=== PATIENT | male | born 2000 | race Caucasian/White ===

== ENCOUNTER 2018-11-26 14:12 | Emergency (ER) | payer OTHER ==
[2018-11-26 14:24] VITALS: TEMP 97.8
--- NOTE | 2018-11-26 15:05 | ED ---
General Adult HPI - General Chief complaint: Psychiatric Symptoms Stated complaint: mental health Time Seen by Provider: 11/26/18 14:29 Source: patient, RN notes reviewed, old records reviewed Mode of arrival: ambulatory Limitations: no limitations - History of Present Illness Initial comments: 18-year-old male presents for psychiatric evaluation. Patient has had suicidal ideation and has been cutting his left upper extremity. He has had some issues with his current relationship. He has previous psychiatric history including depression and self-harm in the past. He denies any physical complaints at the time my evaluation. He states he was urged to present to the emergency department by a friend was concerned. - Related Data Home Medications Medication Instructions Recorded Confirmed Albuterol Sulfate [Proair Hfa] 2 puff INHALATION RT-Q6H PRN 11/26/18 11/26/18 Doxycycline Monohydrate [Monodox] 100 mg PO Q12HR 11/26/18 11/26/18 Allergies Allergy/AdvReac Type Severity Reaction Status Date / Time No Known Allergies Allergy Verified 11/26/18 14:51 Review of Systems ROS Statement: Those systems with pertinent positive or pertinent negative responses have been documented in the HPI. ROS Other: All systems not noted in ROS Statement are negative. Past Medical History Past Medical History: Asthma History of Any Multi-Drug Resistant Organisms: None Reported Past Surgical History: No Surgical Hx Reported Past Psychological History: No Psychological Hx Reported Smoking Status: Never smoker Past Alcohol Use History: None Reported Past Drug Use History: None Reported General Exam Limitations: no limitations General appearance: alert, in no apparent distress Head exam: Present: atraumatic, normocephalic Eye exam: Present: normal appearance, PERRL ENT exam: Present: normal exam Neck exam: Present: normal inspection. Absent: tenderness, meningismus Respiratory exam: Present: normal lung sounds bilaterally. Absent: respiratory distress, wheezes Cardiovascular Exam: Present: regular rate, normal rhythm GI/Abdominal exam: Present: soft. Absent: distended, tenderness, guarding Extremities exam: Present: other (Superficial abrasion left forearm) Neurological exam: Present: alert, oriented X3 Psychiatric exam: Present: depressed, flat affect Skin exam: Present: warm, dry, intact, abrasion. Absent: cyanosis, diaphoretic Course Vital Signs 11/26/18 14:19 Temperature 97.8 F Pulse Rate 65 Respiratory 18 Rate Blood Pressure 118/62 O2 Sat by Pulse 99 Oximetry Medical Decision Making - Medical Decision Making 18 -year-old male presenting for psychiatric evaluation with suicidal ideation. Patient medically cleared in the emergency department, evaluated by EPS. Patient denies any suicidal plan. He is no longer suicidal, he does contract to safety. He is given outpatient referrals. He will return with worsening or changing symptoms. Disposition Clinical Impression: Depression Disposition: HOME SELF-CARE Condition: Good Instructions (If sedation given, give patient instructions): Depression (ED) Is patient prescribed a controlled substance at d/c from ED?: No Referrals: Lolita Bobby MD [Primary Care Provider] - 1-2 days Time of Disposition: 15:55
[2018-11-26 16:06] VITALS: BP 122/68; PULSE 61; RESP 16
== END 2018-11-26 16:05 | disposition home or self-care (01) ==
LOC: EC 14:12
DX: F32.9 Major depressive disorder, single episode, unspecified (principal); S50.812A Abrasion of left forearm, initial encounter; R45.851 Suicidal ideations; J45.909 Unspecified asthma, uncomplicated; Z91.5 Personal history of self-harm; X78.8XXA Intentional self-harm by other sharp object, initial encounter
CPT/HCPCS: 99285

== ENCOUNTER 2019-07-27 22:53 | Inpatient (IN) | payer OTHER ==
[2019-07-27 23:54] LABS: Basophils % (A) 1 %; Eosinophils # (A) 0.6 k/uL (0-0.7); Eosinophils % (A) 7 %; HCT 44.6 % (39.0-53.0); HGB 15.5 gm/dL (13.0-17.5); Lymphocytes # (A) 1.7 k/uL (1.0-4.8); Lymphocytes % (A) 20 %; MCH 29.2 pg (25.0-35.0); MCHC 34.7 g/dL (31.0-37.0); MCV 84.2 fL (80.0-100.0); Mean Platelet Volume 7.2; Monocytes # (A) 0.5 k/uL (0-1.0); Monocytes % (A) 6 %; Neutrophils # (A) 5.6 k/uL (1.3-7.7); Neutrophils % (A) 66 %; Platelet Count 261 k/uL (150-450); RBC 5.31 m/uL (4.30-5.90); RDW 13.1 % (11.5-15.5); WBC 8.5 k/uL (4.0-11.0)
[2019-07-28 00:02] LABS: ALT 18 U/L (4-49); AST 29 U/L (17-59); Acetaminophen <10.0 ug/mL; African American GFR (CKD) >90 (>60 ml/min/1.73 sqM); Albumin 5.4 g/dL (3.5-5.0); Alcohol <10 mg/dL; Alkaline Phosphatase 65 U/L (38-126); Anion Gap 12 mmol/L; Blood Urea Nitrogen 11 mg/dL (9-20); Calcium 10.5 mg/dL (8.4-10.2); Carbon Dioxide 25 mmol/L (22-30); Chloride 105 mmol/L (98-107); Glucose 93 mg/dL (74-99); Non-African American GFR(CKD) >90 (>60 ml/min/1.73 sqM); Potassium 4.3 mmol/L (3.5-5.1); Salicylate <1.0 mg/dL; Sodium 142 mmol/L (137-145); Total Bilirubin 1.2 mg/dL (0.2-1.3)
[2019-07-28 00:50] LABS: Amphetamine Screen,Urine Not Detected (NotDetected); Benzodiazepines Screen,Urine Not Detected (NotDetected); Cocaine Screen,Urine Not Detected (NotDetected); Opiate Screen,Urine Not Detected (NotDetected); Phencyclidine Screen,Urine Not Detected (NotDetected); Tricyclic Antidepressant,Urine Not Detected (NotDetected); Urn Cannabinoid Scrn Not Detected (NotDetected)
[2019-07-28 00:51] LABS: Barbiturate Screen,Urine Not Detected (NotDetected); Methadone Screen, Urine Not Detected (NotDetected); Oxycodone Screen, Urine Not Detected (NotDetected)
--- NOTE | 2019-07-28 01:05 | ED ---
General Adult HPI - General Chief complaint: Psychiatric Symptoms Stated complaint: Mental Health Time Seen by Provider: 07/27/19 23:10 Source: patient, police, RN notes reviewed Mode of arrival: ambulatory Limitations: no limitations - History of Present Illness Initial comments: 18-year-old male with a past medical history of major depressive disorder and generalized anxiety disorder presents to the emergency department for a chief complaint of drug overdose and attempted suicide. Patient states that 3 hours prior to arrival he started to take sleeping pills in an attempt to commit suicide. Patient states he took about 12 [employer] sleep aid pills. He is unsure what the active ingredients or dosing is. Patient states he did this because his girlfriend and him broken up and he was very upset. He does not feel suicidal at this time. He denies taking any other medications. Patient has no other complaints at this time including shortness of breath, chest pain, abdominal pain, nausea or vomiting, headache, or visual changes. - Related Data Home Medications Medication Instructions Recorded Confirmed Albuterol Sulfate [Proair Hfa] 2 puff INHALATION RT-Q6H PRN 11/26/18 11/26/18 Doxycycline Monohydrate [Monodox] 100 mg PO Q12HR 11/26/18 11/26/18 Allergies Allergy/AdvReac Type Severity Reaction Status Date / Time No Known Allergies Allergy Verified 07/27/19 22:58 Review of Systems ROS Statement: Those systems with pertinent positive or pertinent negative responses have been documented in the HPI. ROS Other: All systems not noted in ROS Statement are negative. Past Medical History Past Medical History: Asthma History of Any Multi-Drug Resistant Organisms: None Reported Past Surgical History: No Surgical Hx Reported Past Psychological History: No Psychological Hx Reported Smoking Status: Never smoker Past Alcohol Use History: None Reported Past Drug Use History: None Reported General Exam Limitations: no limitations General appearance: alert, in no apparent distress Head exam: Present: atraumatic, normocephalic, normal inspection Eye exam: Present: normal appearance, PERRL, EOMI. Absent: scleral icterus, conjunctival injection, periorbital swelling ENT exam: Present: normal exam, normal oropharynx, mucous membranes moist, normal external ear exam Neck exam: Present: normal inspection, full ROM. Absent: tenderness, menin gismus, lymphadenopathy Respiratory exam: Present: normal lung sounds bilaterally. Absent: respiratory distress, wheezes, rales, rhonchi, stridor Cardiovascular Exam: Present: regular rate, normal rhythm, normal heart sounds. Absent: systolic murmur, diastolic murmur, rubs, gallop, clicks GI/Abdominal exam: Present: soft, normal bowel sounds. Absent: distended, tenderness, guarding, rebound, rigid Neurological exam: Present: alert, oriented X3, CN II-XII intact Psychiatric exam: Absent: homicidal ideation, suicidal ideation Course Vital Signs 07/27/19 07/28/19 22:58 00:19 Temperature 98 F Pulse Rate 82 77 Respiratory 16 18 Rate Blood Pressure 134/81 126/58 O2 Sat by Pulse 94 L 96 Oximetry - Reevaluation(s) Reevaluation #1: 07/28/19 1227 patient was medically cleared and EPS was consulted Reevaluation #2: 07/28/19 02:44 patient reevaluated, resting comfortably. I did call EPS nurse again and she is working on an authorization for another patient, unable to give estimate of time patient can be evaluated but she is hoping soon EKG Findings - EKG Comments: EKG Findings:: normal sinus rhythm, ventricular rate 79, MS interval 160, QTC 428 Medical Decision Making - Medical Decision Making Patient took 12 sleeping pills. Patient states these were sleeping pills OTC from [employer]. This is likely Benadryl. No anticholinergic symptoms. Heart rate is stable. CBC and CMP are unremarkable. Salicylates and acetaminophen are negative. Urine drug scan otherwise negative. EKG was obtained which showed a normal sinus rhythm. Poison control was contacted, did not recommend any further workup. Patient has been stable throughout his stay. He is alert and well-appearing, nontoxic. Patient was medically cleared for EPS evaluation given that he did have an attempted suicide. However at this time he is denying any suicidal thoughts. Patient was evaluated by EPS, recommending inpatient treatment. Patient signing in. - Lab Data Result diagrams: 07/27/19 23:25 07/27/19 23:25 Lab Results 07/27/19 07/27/19 07/28/19 Range/Units 23:25 23:25 00:26 WBC 8.5 (4.0-11.0) k/uL RBC 5.31 (4.30-5.90) m/uL Hgb 15.5 (13.0-17.5) gm/dL Hct 44.6 (39.0-53.0) % MCV 84.2 (80.0-100.0) fL MCH 29.2 (25.0-35.0) pg MCHC 34.7 (31.0-37.0) g/dL RDW 13.1 (11.5-15.5) % Plt Count 261 (150-450) k/uL Neutrophils % 66 % Lymphocytes % 20 % Monocytes % 6 % Eosinophils % 7 % Basophils % 1 % Neutrophils # 5.6 (1.3-7.7) k/uL Lymphocytes # 1.7 (1.0-4.8) k/uL Monocytes # 0.5 (0-1.0) k/uL Eosinophils # 0.6 (0-0.7) k/uL Basophils # 0.0 (0-0.2) k/uL Sodium 142 (137-145) mmol/L Potassium 4.3 (3.5-5.1) mmol/L Chloride 105 (98-107) mmol/L Carbon Dioxide 25 (22-30) mmol/L Anion Gap 12 mmol/L BUN 11 (9-20) mg/dL Creatinine 1.11 (0.66-1.25) mg/dL Est GFR (CKD-EPI)AfAm >90 (>60 ml/min/1.73 sqM) Est GFR (CKD-EPI)NonAf >90 (>60 ml/min/1.73 sqM) Glucose 93 (74-99) mg/dL Calcium 10.5 H (8.4-10.2) mg/dL Total Bilirubin 1.2 (0.2-1.3) mg/dL AST 29 (17-59) U/L ALT 18 (4-49) U/L Alkaline Phosphatase 65 (38-126) U/L Total Protein 9.0 H (6.3-8.2) g/dL Albumin 5.4 H (3.5-5.0) g/dL Salicylates <1.0 mg/dL Urine Opiates Screen Not Detected (NotDetected) Ur Oxycodone Screen Not Detected (NotDetected) Urine Methadone Screen Not Detected (NotDetected) Ur Propoxyphene Screen Not Detected (NotDetected) Acetaminophen <10.0 ug/mL Ur Barbiturates Screen Not Detected (NotDetected) U Tricyclic Antidepress Not Detected (NotDetected) Ur Phencyclidine Scrn Not Detected (NotDetected) Ur Amphetamines Screen Not Detected (NotDetected) U Methamphetamines Scrn Not Detected (NotDetected) U Benzodiazepines Scrn Not Detected (NotDetected) Urine Cocaine Screen Not Detected (NotDetected) U Marijuana (THC) Screen Not Detected (NotDetected) Serum Alcohol <10 mg/dL Disposition Clinical Impression: Drug overdose, intentional, Suicide attempt Disposition: TRANSFER TO PSYCH HOSP/UNIT Condition: Fair Is patient prescribed a controlled substance at d/c from ED?: No Referrals: Lolita Bobby MD [Primary Care Provider] - 1-2 days Time of Disposition: 04:03
[2019-07-28] MEDS ORDERED: ZIPRASIDONE 20 MG VIAL IM PRN (05:27)
[2019-07-28] MEDS ORDERED: MAG HYDROX/AL HYDROX/SIMETH 30 ML CUP PO PRN (05:27)
[2019-07-28] MEDS ORDERED: LORazepam 1 MG TAB PO PRN (05:27)
[2019-07-28] MEDS ORDERED: ACETAMINOPHEN TAB 325 MG TAB PO PRN (05:27)
[2019-07-28] MEDS ORDERED: MAGNESIUM HYDROXIDE 2,400 MG/10 ML CUP PO PRN (05:27)
[2019-07-28] MEDS ORDERED: ALBUTEROL INHALER 60 PUFF/8 GM INHALER INHALATION PRN (06:02)
[2019-07-28] MEDS ORDERED: SERTRALINE 100 MG TAB PO SCH (09:00)
[2019-07-28] MEDS ORDERED: buPROPion 75 MG TAB PO SCH (09:00)
[2019-07-28] MEDS ORDERED: NICOTINE 14MG/24HR PATCH TRANSDERM SCH (09:00)
[2019-07-28] MEDS: SERTRALINE 50 MG TAB PO SCH (09:40)
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
--- NOTE | 2019-07-28 17:12 | P.MDCNMH ---
History of Present Illness H&P Date: 07/28/19 Chief Complaint: depression patient is a 18-year-old male with a known history of asthma and depressive disorder and generalized anxiety presents to ER with complaints of drug overdose and attempted suicide.Patient states that 3 hours prior to arrival he started to take sleeping pills in an attempt to commit suicide. Patient states he took about 12 [employer] sleep aid pills. He is unsure what the active ingredients or dosing is. Patient states he did this because his girlfriend and broke up with him and he was very upset. He does not feel suicidal at this time. He denies taking any other medications. Patient has no other complaints at this time including shortness of breath, chest pain, abdominal pain, nausea or vomiting, headache, or visual changes. UDS negative Calcium 10.5 Review of Systems Constitutional: Patient denies any fever or chills . No generalized weakness or weight loss. Abdomen: Patient denied nausea vomiting and diarrhea and abdominal pain. Cardiovascular: Patient denies any chest pain or short of breath no palpitations. Respiratory: patient denied any cough is from production. No shortness of breath Neurologic: Patient denied any numbness or tingling headache. Musculoskeletal: Patient denies any complaints of joint swelling or deformity. Skin: Negative Psychiatric: depression Endocrine: No heat or cold intolerance. No recent weight gain. Genitourinary: No dysuria or hematuria. All other 14 point ROS negative except the above Past Medical History Past Medical History: Asthma History of Any Multi-Drug Resistant Organisms: None Reported Past Surgical History: No Surgical Hx Reported Smoking Status: Never smoker Medications and Allergies Home Medications Medication Instructions Recorded Confirmed Type Albuterol Sulfate [Proair Hfa] 2 puff INHALATION RT-Q6H PRN 11/26/18 11/26/18 History Doxycycline Monohydrate [Monodox] 100 mg PO Q12HR 11/26/18 11/26/18 History Allergies Allergy/AdvReac Type Severity Reaction Status Date / Time No Known Allergies Allergy Verified 07/27/19 22:58 Physical Exam Vitals: Vital Signs Temp Pulse Pulse Resp BP BP Pulse Ox 07/28/19 06:05 96.8 F L 60 14 90/49 98 07/28/19 00:19 77 18 126/58 96 07/27/19 22:58 98 F 82 16 134/81 94 L Intake and Output 07/28/19 07/28/19 07/28/19 06:59 14:59 22:59 Other: Weight 101.378 kg PHYSICAL EXAMINATION: Patient is lying in the bed comfortably, no acute distress, awake alert and oriented.. HEENT: Normocephalic. Neck is supple. Pupils reactive. Nostrils clear. Oral cavity is moist. Ears reveal no drainage. Neck reveals no JVD, carotid bruits, or thyromegaly. CHEST EXAMINATION: Trachea is central. Symmetrical expansion. Lung nieves clear to auscultation and percussion. CARDIAC: Normal S1, S2 with no gallops. No murmurs ABDOMEN: Soft. Bowel sounds normal. No organomegaly. No abdominal bruits. Extremities: reveal no edema. No clubbing or cyanosis Neurologically awake, alert, oriented x3 with well-coordinated movements. No focal deficits noted Skin: No rash or skin lesions. Psychiatric: Coperative. Nonsuicidal Musculoskeletal: No joint swelling or deformity. Normal range of motion. Cranial Nerve Examination - Cranial Nerves Cranial Nerve I- Olfactory: Intact Cranial Nerve II- Optic: Intact Cranial Nerve III- Oculomotor: Intact Cranial Nerve IV- Trochlear: Intact Cranial Nerve V- Trigeminal: Intact Cranial Nerve - Abducens: Intact Cranial Nerve VII- Facial: Intact Cranial Nerve VIII- Auditory: Intact Cranial Nerve IX- Glossopharyngeal: Intact Cranial Nerve X- Vagus: Intact Cranial Nerve XI- Accessory: Intact Cranial Nerve XII- Hypoglossal: Intact Results CBC & Chem 7: 07/27/19 23:25 07/27/19 23:25 Labs: Abnormal Lab Results - Last 24 Hours (Table) 07/27/19 Range/Units 23:25 Calcium 10.5 H (8.4-10.2) mg/dL Total Protein 9.0 H (6.3-8.2) g/dL Albumin 5.4 H (3.5-5.0) g/dL Assessment and Plan Assessment: Major depression with a suicide attempt by taking sleeping pills History of depression asthma stable mild hypercalcemia likely due to dehydration DVT prophylaxis with early ambulation. Plan: Patient will be continued on current psychiatric medicationsand management. breathing treatments with albuterol as needed for shortness of breath.we will continue to follow closely and further recommendations based on the clinical course. Thank you for your consult Time with Patient: Greater than 30
[2019-07-28] MEDS ORDERED: MELATONIN 3 MG TABLET PO SCH (21:00)
[2019-07-29 06:53] VITALS: BP 105/62; PULSE 77; RESP 16; TEMP 98.1
[2019-07-29] MEDS: SERTRALINE 50 MG TAB PO SCH (08:54)
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
[2019-07-29 11:19] LABS: ALT 15 U/L (4-49); AST 21 U/L (17-59); African American GFR (CKD) >90 (>60 ml/min/1.73 sqM); Albumin 5.2 g/dL (3.5-5.0); Alkaline Phosphatase 55 U/L (38-126); Anion Gap 8 mmol/L; Bilirubin, Delta 0.2 mg/dL (0.0-0.2); Bilirubin,Unconjugated 0.8 mg/dL (0.0-1.1); Blood Urea Nitrogen 16 mg/dL (9-20); Calcium 10.2 mg/dL (8.4-10.2); Carbon Dioxide 31 mmol/L (22-30); Chloride 105 mmol/L (98-107); Cholesterol 157 mg/dL (<200); Glucose 56 mg/dL (74-99); HDL Cholesterol 35 mg/dL (40-60); LDL Cholesterol,Calculated 98 mg/dL (0-99); Non-African American GFR(CKD) >90 (>60 ml/min/1.73 sqM); Potassium 4.2 mmol/L (3.5-5.1); Sodium 144 mmol/L (137-145); Total Protein 8.2 g/dL (6.3-8.2); Triglycerides 118 mg/dL (<150)
[2019-07-29 11:26] LABS: Basophils # (A) 0.1 k/uL (0-0.2); Basophils % (A) 1 %; Eosinophils # (A) 0.2 k/uL (0-0.7); Eosinophils % (A) 3 %; HCT 45.8 % (39.0-53.0); HGB 15.2 gm/dL (13.0-17.5); Lymphocytes # (A) 2.2 k/uL (1.0-4.8); Lymphocytes % (A) 30 %; MCH 28.8 pg (25.0-35.0); MCHC 33.2 g/dL (31.0-37.0); MCV 86.6 fL (80.0-100.0); Mean Platelet Volume 7.3; Monocytes # (A) 0.6 k/uL (0-1.0); Monocytes % (A) 8 %; Neutrophils # (A) 4.1 k/uL (1.3-7.7); Neutrophils % (A) 56 %; Platelet Count 262 k/uL (150-450); RBC 5.29 m/uL (4.30-5.90); RDW 13.1 % (11.5-15.5); WBC 7.4 k/uL (4.0-11.0)
[2019-07-29 19:12] LABS: Hemoglobin A1C 4.9 % (4.0-6.0)
== END 2019-07-29 11:18 | disposition home or self-care (01) | DRG 885 ==
LOC: EC 22:53 → 3MHU 07-28 05:21
PROVIDERS: ADMIT Psychiatry & Neurology Psychiatry; ATTEND Psychiatry & Neurology Psychiatry
DX: F32.1 Major depressive disorder, single episode, moderate (principal); E83.52 Hypercalcemia; E86.0 Dehydration; F43.10 Post-traumatic stress disorder, unspecified; F41.1 Generalized anxiety disorder; G47.9 Sleep disorder, unspecified; T50.902A Poisoning by unspecified drugs, medicaments and biological substances, intentional self-harm, initial encounter; J45.909 Unspecified asthma, uncomplicated; Z79.2 Long term (current) use of antibiotics; Z79.899 Other long term (current) drug therapy
CPT/HCPCS: 36415; 80053; 80061; 80306; 80320; 80329; 82075; 82248; 83036; 83520; 84443; 85025; 93005; 99285

== ENCOUNTER 2020-08-16 14:09 | Emergency (ER) | payer OTHER ==
[2020-08-16 14:14] VITALS: RESP 18
[2020-08-16] MEDS ORDERED: SODIUM CHLORIDE 0.9% 1,000 ML IV STA (14:36)
[2020-08-16] MEDS ORDERED: ACETAMINOPHEN TAB 500 MG TAB PO STA (14:36)
--- NOTE | 2020-08-16 14:56 | ED ---
General Adult HPI - General Chief complaint: Nausea/Vomiting/Diarrhea Stated complaint: nausea,fever Time Seen by Provider: 08/16/20 14:22 Source: patient Mode of arrival: ambulatory Limitations: no limitations - History of Present Illness Initial comments: Patient is a 19-year-old male presenting to the emergency Department with complaints of fever, chills and nausea and vomiting that started yesterday. Patient states his girlfriend tested positive for Covid 2 weeks ago. Patient states yesterday he woke up and noticed he had a fever and had chills and body aches throughout the day. Patient does admit to having a mild dry cough and some mild congestion. He does have history of mild asthma, takes albuterol inhaler as needed. Patient states today he had a few episodes of nausea and vomiting, some mild abdominal cramping. Denies any diarrhea. Denies any chest pain or shortness of breath. He states he took a Motrin at approximately 10 AM this morning and then a dayquil about 2 hours ago. Patient has no other pertinent past history and takes no other medications. He denies being a smoker. He has no further complaints at this time. Upon arrival to the ER, he is febrile to 102.8, pulse is 126, rest of vitals are normal. - Related Data Home Medications Medication Instructions Recorded Confirmed Albuterol Sulfate [Proair Hfa] 2 puff INHALATION RT-Q6H PRN 11/26/18 08/16/20 Acetaminophen Tab [Tylenol] 650 mg PO Q6H PRN 08/16/20 08/16/20 D-Methorphan/PE/Acetaminophen 1 cap PO HS PRN 08/16/20 08/16/20 [Vicks Dayquil Liquicaps] Dm/Acetaminophen/Doxylamine [Vicks 1 cap PO DAILY PRN 08/16/20 08/16/20 Nyquil Liquicaps] Ibuprofen [Motrin Ib] 400 - 600 mg PO Q6H PRN 08/16/20 08/16/20 Melatonin 3 mg PO HS PRN 08/16/20 08/16/20 Sertraline HCl [Zoloft] 100 mg PO DAILY 08/16/20 08/16/20 Allergies Allergy/AdvReac Type Severity Reaction Status Date / Time No Known Allergies Allergy Verified 08/16/20 16:27 Review of Systems ROS Statement: Those systems with pertinent positive or pertinent negative responses have been documented in the HPI. ROS Other: All systems not noted in ROS Statement are negative. Past Medical History Past Medical History: Asthma History of Any Multi-Drug Resistant Organisms: None Reported Past Surgical History: No Surgical Hx Reported Past Psychological History: No Psychological Hx Reported Smoking Status: Never smoker Past Alcohol Use History: None Reported Past Drug Use History: None Reported General Exam - General Exam Comments Initial Comments: GENERAL: Patient is well-developed and well-nourished. Patient is nontoxic and in no acute distress. HEAD: Atraumatic, normocephalic. EYES: Pupils equal round and reactive to light, extraocular movements intact, sclera anicteric, conjunctiva are normal. Eyelids were unremarkable. ENT: TMs normal, nares patent, oropharynx clear without exudates. Moist mucous membranes. NECK: Normal range of motion, supple without lymphadenopathy or JVD. LUNGS: Unlabored respirations. Breath sounds clear to auscultation bilaterally and equal. No wheezes rales or rhonchi. HEART: Regular rate and rhythm without murmurs, rubs or gallops. ABDOMEN: Soft, nontender, normoactive bowel sounds. No guarding, no rebound. No masses appreciated. : Deferred MUSCULOSKELETAL: Normal extremities with adequate strength and normal range of motion, no pitting or edema. No clubbing or cyanosis. NEUROLOGICAL: Patient is alert and oriented x 3. Motor and sensory are also intact. Cranial nerves II through XII grossly intact. Symmetrical smile. Normal speech, normal gait. PSYCH: Normal mood, normal affect. SKIN: Warm, Dry, normal turgor, no rashes or lesions noted. Limitations: no limitations Course Vital Signs 08/16/20 08/16/20 08/16/20 14:11 14:21 15:43 Temperature 100.4 F H 102.8 F H 98.7 F Pulse Rate 126 H Respiratory 18 Rate Blood Pressure 119/65 O2 Sat by Pulse 97 Oximetry Medical Decision Making - Medical Decision Making Patient is a 19-year-old male here for fever, chills, nausea and vomiting started yesterday. Patient's girlfriend tested positive for Covid 2 weeks ago. He did arrive febrile and tachycardia, 97% on room air. No chest pain or shortness of breath. History of mild asthma, no other pertinent past medical history, he is a nonsmoker. Chest x-ray shows no acute abnormalities, rapid Covid and influenza are both negative. Patient was given a liter of fluids and Tylenol, his fever did decrease to 98.7. Patient does feel mild improvment in his symptoms. Discussed with patient this is most likely viral in nature, there is a chance of a false negative Covid test. I recommended continuing with Tylenol or Motrin for fever control, increase fluid intake. He is in agreement this plan of care. He is stable for discharge. Case discussed with Dr. Varela. - Lab Data Lab Results 08/16/20 Range/Units 14:47 Coronavirus (PCR) Not Detected (Not Detectd) Influenza Type A RNA Not Detected (Not Detectd) Influenza Type B (PCR) Not Detected (Not Detectd) Disposition Clinical Impression: Viral respiratory illness, Nausea & vomiting, Suspected COVID-19 virus infection Disposition: HOME SELF-CARE Condition: Stable Instructions (If sedation given, give patient instructions): Viral Syndrome (ED) Additional Instructions: Please return to the Emergency Department if symptoms worsen or any other concerns. Continue to alternate between Tylenol and Motrin for fever control. Increase fluid intake. Take Zofran as needed for additional nausea or vomiting. Follow-up with your regular doctor. Is patient prescribed a controlled substance at d/c from ED?: No Referrals: Lolita Bobby MD [Primary Care Provider] - 1-2 days
--- NOTE | 2020-08-16 15:14 | XR ---
EXAMINATION TYPE: XR chest 1V portable DATE OF EXAM: 08/16/2020 COMPARISON: 08/23/2013 INDICATION: Possible Covid fever TECHNIQUE: Single frontal view of the chest is obtained. FINDINGS: The heart size is normal. The pulmonary vasculature is normal. The lungs are clear. IMPRESSION: 1. No acute pulmonary process.
[2020-08-16 16:04] LABS: SARS-CoV-2 RNA Rapid Abbott Not Detected (Not Detectd)
[2020-08-16 16:08] VITALS: TEMP 98.7
[2020-08-16] MEDS ORDERED: ONDANSETRON 4 MG ODT STARTER PACK 2 TAB BTL PO STA (16:22)
[2020-08-16 16:38] VITALS: BP 105/51; PULSE 80
== END 2020-08-16 17:16 | disposition home or self-care (01) ==
LOC: EC 14:09
DX: B34.9 Viral infection, unspecified (principal); R11.2 Nausea with vomiting, unspecified; J45.909 Unspecified asthma, uncomplicated; Z20.822 Contact with and (suspected) exposure to COVID-19; Z79.51 Long term (current) use of inhaled steroids
CPT/HCPCS: 99284; 96360; 87502; 87635; 71045; S0119

== ENCOUNTER → 2021-10-06 | Day surgery (SDC) | payer OTHER ==
[2021-10-04 11:19] VITALS: BMI 32.3
[~2021-10-06] MED LIST: LACTATED RINGERS 1,000 ML IV ONE; LACTATED RINGERS 1,000 ML IV SCH; MIDAZOLAM 2 MG/2 ML VIAL ONE; PROPOFOL 10 MG/ML 20 ML VIAL IV ONE; fentaNYL (PF) 50 MCG/ML 2 ML AMP ONE
[2021-10-06 11:27] VITALS: TEMP 98
--- NOTE | 2021-10-06 11:54 | P.PCN ---
Date of Procedure: 10/06/21 Procedure(s) Performed: BRIEF HISTORY: Patient is a 20-year-old pleasant male scheduled for an elective colonoscopy as a part of evaluation of intermittent rectal bleeding for the last 2 months duration. PROCEDURE PERFORMED: Colonoscopy. PREOPERATIVE DIAGNOSIS: Intermittent rectal bleeding of 2 months duration. IV sedation per Anesthesia. PROCEDURE: After informed consent was obtained, the patient, was brought into the endoscopy unit. IV sedation was administered by Anesthesia under continuous monitoring. Digital rectal examination was normal. Initially the Olympus CF-160 flexible video colonoscope was then inserted in the rectum, gradually advanced into the cecum without any difficulty. Careful examination was performed as the scope was gradually being withdrawn. Ileocecal valve and the appendiceal orifice were visualized and appeared normal. Prep was excellent. Mucosa of the cecum, ascending colon, transverse colon, descending colon, sigmoid colon, and rectum appeared normal. Retroflexion was performed in the rectum and no internal hemorrhoids were seen. The patient tolerated the procedure well. IMPRESSION: Normal-appearing colon from rectum to cecum with no evidence of colorectal neoplasia. Small internal hemorrhoids. RECOMMENDATIONS: Findings of this examination were discussed with the patient well as his family. He was advised to be a high-fiber diet and take fiber supplements a regular basis and avoid straining and constipation..
[2021-10-06 12:25] VITALS: BP 116/69; PULSE 72; RESP 18
== END ==
LOC: ORWHC2ENDO 10:53
PROVIDERS: ATTEND Internal Medicine Gastroenterology
DX: K92.1 Melena (principal); K64.8 Other hemorrhoids; F41.9 Anxiety disorder, unspecified; J45.909 Unspecified asthma, uncomplicated; Z79.899 Other long term (current) drug therapy
CPT/HCPCS: 45378; J2250; J3010; J2704

== ENCOUNTER → 2023-02-04 | Outpatient (CLI) | payer OTHER ==
[2023-02-04 21:18] LABS: ALT 21 U/L (10-49); AST 18 U/L (14-35); Albumin 4.9 d/dL (3.8-4.9); Albumin/Globulin Ratio 2.04 Ratio (1.60-3.17); Alkaline Phosphatase 48 U/L (41-126); BUN/Creat Ratio 11.18 Ratio (12.00-20.00); Blood Urea Nitrogen 12.3 mg/dL (9.0-27.0); Calcium 10.2 mg/dL (8.7-10.3); Carbon Dioxide 26.9 mmol/L (21.6-31.8); Chloride 104 mmol/L (96-109); Ferritin 82.8 ng/mL (22.0-322.0); Globulin 2.4 d/dL (1.6-3.3); Glucose 81 mg/dL (70-110); Potassium 4.5 mmol/L (3.5-5.5); Sodium 142 mmol/L (135-145); T4, Free (Free Thyroxine) 1.09 ng/dL (0.80-1.80); Total Bilirubin 0.5 mg/dL (0.3-1.2); Total Protein 7.3 d/dL (6.2-8.2)
[2023-02-04 21:34] LABS: HCT 44.6 % (39.6-50.0); HGB 14.3 d/dL (12.0-15.0); MCHC 32.1 d/dL (32.0-37.0); MCV 90.5 FL (80.0-97.0); Mean Platelet Volume 10.6 FL (9.5-12.2); NRBC Per 100 WBC 0 X 10*3/uL (0.00-0.01); Platelet Count 237 X 10*3/uL (140-440); RBC 4.93 X 10*6/uL (4.40-5.60); RDW 13.2 % (11.5-14.5); WBC 5.88 X 10*3/uL (4.50-10.00)
[2023-02-04 22:51] LABS: Follicle Stimulating Hormone 1.9 mIU/mL; Luteinizing Hormone 6.2 mIU/mL
== END | disposition home or self-care (01) ==
LOC: LABWHC1 14:32
PROVIDERS: ATTEND Internal Medicine Endocrinology, Diabetes & Metabolism
DX: E29.1 Testicular hypofunction (principal); R53.83 Other fatigue
CPT/HCPCS: 36415; 80053; 82024; 82533; 82607; 82728; 83001; 83002; 84146; 84153; 84403; 84439; 84443; 84481; 85027